=== PATIENT | male | born 1985 | race Caucasian/White ===

== ENCOUNTER 2023-06-23 18:07 | Emergency (ER) | payer MEDICAID ==
[~2023-06-23] VITALS: Ht 165.1 cm; Wt 76.2 kg
[2023-06-23 19:01] VITALS: BP_SYST 123; PULSE 78; RESP 18; TEMP 98.6; O2SAT 99
== END 2023-06-23 21:20 | disposition left against medical advice (07) ==
LOC: SED 18:07
DX: R10.10 Upper abdominal pain, unspecified (principal); M54.50 Low back pain, unspecified; R53.1 Weakness; Z53.21 Procedure and treatment not carried out due to patient leaving prior to being seen by health care provider
CPT/HCPCS: 99281